=== PATIENT | female | born 1955 | race Caucasian/White ===

== ENCOUNTER → 2016-11-15 | Outpatient (CLI) | payer MEDICAID ==
[~2016-11-15] MED LIST: ALBUTEROL-200 PUFFS/ IH; ASPIRIN 81MG TA81 MG PO; BENICAR20 MG PO; BENTYL GENERIC10 MG PO; ESTRADIOL0.5 MG PO; FLEXERIL10 MG PO; FLONASE16 GM; GABAPENTIN300 MG PO; IBUPROFEN400 MG PO; KEFLEX 500MG.500 MG PO; LEVOTHYROXIN0.125 MG PO; METOPROLOL 25 M25 MG PO; METOPROLOL TART50 MG PO; MOTRIN 600MG.600 MG PO; PREMARIN 0.9MG0.9 MG PO; VICODIN 5/500 T1 TAB PO
[2016-11-15 12:24] LABS: BUN 11 mg/dL (7-18); GFR (ESTIMATED) 51 ML/MIN (59-)
--- NOTE | 2016-11-16 13:00 | RADIOLOGY REPORT PS360 ---
CT SOFT TISSUE NECK W/CONTRAST HISTORY: NECK PAIN LEFT SIDE Right neck fullness with Dr. Shahid exam Patient Age: 61 years: Female Ordering Physician: Phylicia Shahid MD TECHNIQUE: Helical CT scanning performed through the cervical spine with sagittal coronal reconstructions on CT workstation COMPARISON : 08/06/2015 CTA neck FINDINGS Regarding fullness of the right neck : Patient's right internal jugular is significantly larger than the left measuring up to 21 mm diameter on right 8.5 mm on left. Similar appearance was seen on the July 2015 CTA. No mass lesion is seen on right. Pulsatile area at the right neck was felt to correspond with a tortuous and generous common carotid as discussed on previous CTA from 2016 as well. The patient's generous caliber tortuous carotid, extends anteriorly to the right of the thyroid where it joins the slightly high and anteriorly positioned innominate artery. I suspect these features account for the fullness at the right neck with no additional adenopathy or mass is seen on right At the left neck of there is no significant adenopathy or mass either. The parotid glands and submandibular glands are symmetric. Thyroid gland appears modest size bilaterally.. No enlargement. . Perhaps slight generous soft tissues are seen at the uvula and nasopharynx. A slightly generous but symmetrical soft tissues at the torus and posterior nasopharynx near the entry of the eustachian tubes are noted. The middle air clear bilaterally. Mastoid air cells unremarkable. Paranasal sinuses clear. Images of the base the brain unremarkable. Apices the lungs are clear. There are degenerative disc changes and spondylosis C-spine most evident at C4/5 and C5-C6. Incidentally noted. IMPRESSION 1. No significant mass nor adenopathy in either right or left neck. 2. Regarding fullness right neck: Note very generous volume right internal jugular vein, as well as a generous tortuous right common carotid artery, where it junctions with a anteriorly coursing innominate vein. I suspect these vascular structures may contribute to the palpable right neck fullness. (. This is felt to account for the palpable right neck features on as discussed on July 2015 CTA neck.). No suspicious right neck mass nor adenopathy otherwise seen 3. Regarding left ear pain.: External auditory canal, middle ear and left temporal bone along with mastoids appear satisfactory bilaterally.. I would only question perhaps slightly generous soft tissues at the posterior nasopharynx. However The soft tissues appear symmetrical in the region in this region including region of torus tubarius. The eustachian tube is segmentally visualized leading to this region at the nasopharynx but appears very slightly more aerated on right than left. Nonspecific.. .
== END ==
LOC: RAD 11-06 13:45
PROVIDERS: Family Medicine
DX: M54.2 Cervicalgia (principal)
CPT/HCPCS: Q9967